=== PATIENT | male | born 1965 | race Caucasian/White ===

== ENCOUNTER 2020-08-07 00:46 | Emergency (ER) | payer MEDICAID ==
[~2020-08-07] VITALS: Ht 177.8 cm; Wt 84.6 kg
[2020-08-07 01:06] VITALS: BP 177/124
== END 2020-08-07 03:41 | disposition left against medical advice (07) ==
LOC: ER 00:48
DX: I10 Essential (primary) hypertension (principal); Z53.21 Procedure and treatment not carried out due to patient leaving prior to being seen by health care provider

== ENCOUNTER 2020-08-10 20:44 | Emergency (ER) | payer MEDICAID | END 2020-08-10 23:59 | disposition left against medical advice (07) | LOC: ER 20:45 | DX: F10.129 Alcohol abuse with intoxication, unspecified (principal); Z53.21 Procedure and treatment not carried out due to patient leaving prior to being seen by health care provider; Y92.89 Other specified places as the place of occurrence of the external cause; Y90.9 Presence of alcohol in blood, level not specified ==

== ENCOUNTER 2021-01-26 01:01 | Emergency (ER) | payer MEDICAID ==
[~2021-01-26] VITALS: Ht 177.8 cm; Wt 85.7 kg
[2021-01-26 01:31] VITALS: BP 161/110
== END 2021-01-26 06:59 | disposition left against medical advice (07) ==
LOC: ER 01:04
DX: Z53.21 Procedure and treatment not carried out due to patient leaving prior to being seen by health care provider (principal)